=== PATIENT | female | born 1995 | race Two or more races ===

== ENCOUNTER → 2020-12-01 | Outpatient (CLI) | payer OTHER ==
[~2020-12-01] MED LIST: GASTROGRAFIN SOLUTION 30ML (Q9963) As Ordered ONE; ISOVUE-370 76% 100ML VIAL As Ordered ONE
--- NOTE | 2020-12-01 23:30 | REP ---
INDICATION: LIVER LESIONS. COMPARISON: None. TECHNIQUE: Axial precontrast, contrast-enhanced and delayed images of the abdomen using oral and 100 cc Isovue 370 intravenous contrast material with coronal and sagittal reformations. Coronal and sagittal reformations obtained. This CT examination was performed using the following dose reduction techniques: Automated exposure control, adjustment of mA and/or kv according to the patient's size, and use of iterative reconstruction technique. FINDINGS: The liver demonstrates moderate hepatomegaly and diffuse significant hepatosteatosis without focal hepatic lesion or abnormality otherwise noted. Spleen, pancreas, gallbladder, bilateral adrenal glands and kidneys are normal. The visualized enteric system is without obstruction or acute process. No ascites. No free air. No adenopathy. Abdominal aorta without aneurysm or dissection. Musculoskeletal structures are intact. Lung bases are clear. IMPRESSION: 1. Hepatomegaly and hepatosteatosis. No focal hepatic lesions identified. <Electronically signed by Suhail Alvarez > 12/01/20 [id number]
== END ==
LOC: M RAD 17:35
PROVIDERS: ATTEND Family Medicine
DX: R16.0 Hepatomegaly, not elsewhere classified (principal)
CPT/HCPCS: 74160; Q9963; Q9967